=== PATIENT | male | born 1990 | race Caucasian/White ===

== ENCOUNTER → 2020-11-29 | Outpatient (CLI) | payer OTHER ==
[~2020-11-29] MED LIST: FLEXERIL PO; IBUPROFEN600 MG PO
== END ==
LOC: SLEEP 14:56
DX: G47.33 Obstructive sleep apnea (adult) (pediatric) (principal)
CPT/HCPCS: 95811

== ENCOUNTER 2020-12-26 18:33 | Emergency (ER) | payer OTHER ==
[2020-12-26] MEDS ORDERED: IBUPROFEN600 MG PO (21:29)
[2020-12-26] MEDS ORDERED: FLEXERIL PO (21:29)
== END 2020-12-26 21:50 | disposition home or self-care (01) ==
LOC: ER1 18:33
DX: S39.012A Strain of muscle, fascia and tendon of lower back, initial encounter (principal); S80.02XA Contusion of left knee, initial encounter; S80.01XA Contusion of right knee, initial encounter; M54.2 Cervicalgia; F17.210 Nicotine dependence, cigarettes, uncomplicated; Z79.82 Long term (current) use of aspirin; V49.40XA Driver injured in collision with unspecified motor vehicles in traffic accident, initial encounter; Y92.410 Unspecified street and highway as the place of occurrence of the external cause
CPT/HCPCS: 73564; 99283